=== PATIENT | female | born 1960 | race Caucasian/White ===

== ENCOUNTER 2021-06-21 08:18 | Inpatient (IN) | payer BC ==
[~2021-06-21] VITALS: Ht 162.6 cm; Wt 71.5 kg
--- NOTE | 2021-06-21 08:20 | NUR ---
PATIENT TO ROOM VIA WHEELCHAIR AND PHYSICIAN NOTIFIED OF PATIENT STATUS
[2021-06-21 09:12] LABS: HEMOGLOBIN 13.1 g/dl (12.0-16.0); IMMATURE GRANULOCYTES 4.8 % (0.0-5.0); MEAN CELL VOLUME 86.1 fL CALC (80.0-100.0); MEAN CORPUSCULAR HGB 28.9 pG CALC (26.0-32.0); MEAN CORPUSCULAR HGB CONC 33.6 g/dL CAL (32.0-36.0); NEUT# 9.74 thou/uL (2.00-7.15); RED BLOOD COUNT 4.53 mill/uL (4.20-5.60); RED CELL DISTRI WIDTH 13.1 % (11.5-15.5)
--- NOTE | 2021-06-21 09:24 | NUR ---
Reassessment of patient completed. No distress noted.
[2021-06-21 09:34] LABS: ALKALINE PHOSPHATASE 82 u/l (38-126); ANION GAP 15 (6-22 (CALC)); BILIRUBIN, TOTAL 0.8 mg/dL (0.0-1.4); BUN 11 mg/dL (7-17); BUN/CREATININE RATIO 18 (12-20 (CALC)); CARBON DIOXIDE 25 mmol/l (22-30); CHLORIDE 101 mmol/l (95-108); CREATININE 0.6 mg/dL (0.5-1.0); GFR > 60 ML/MIN (>=60 (CALC)); GFR FOR AFR.AMER. > 60 ML/MIN (>=60 (CALC)); POTASSIUM 3.2 mmol/l (3.5-5.1); SGOT/AST 63 u/l (14-36); SODIUM 137 mmol/l (137-146); TOTAL PROTEIN 7.7 g/dL (6.3-8.2)
--- NOTE | 2021-06-21 10:58 | NUR ---
ATTEMPT TO CALL REPORT TO FLOOR
[2021-06-21 11:15] VITALS: BP 128/68
--- NOTE | 2021-06-21 11:15 | NUR ---
PATIENT CAME FROM ER VIA WHEELCHAIR. CANINE SERVICE TEACHER IN ROOM TO OBTAIN VS. O2 AT 2L VIA NC AND O2 READING 85%. O2 INCREASE TO 4L VIA NC AND O2 READING 92%. PATIENT DENIES ANY OTHER NEEDS. TELE IN PLACE. CALL LIGHT IN REACH.
--- NOTE | 2021-06-21 13:34 | NUR ---
ASSESSMENT DONE. TELE IN PLACE. PATIENT IS ALERT AND ORIENT X3. PATIENT STATED THAT SHE GETS SOB WHEN SHE MOVES. PATIENT O2 AT 4L VIA NC AND O2 READING 88-89%. INCREASE O2 TO 5L VIA NC WITH HUMIDIFIE AND O2 READING 93%. TELE IN PLACE. PATIENT DENIES ANY NEEDS AT THIS TIME. SAFETY PRECAUTIONS REINFORCED AND CALL LIGHT IN REACH.
[2021-06-21 15:00] VITALS: BP 109/65
--- NOTE | 2021-06-21 16:30 | NUR ---
PATIENT IS RESTING IN BED. O2 AT 5L VIA NC AND READING 95%. EDUCATED PATIENT ABOUT PRONE POSITION. PO FLUIDS PROVIDED. PATIENT DENIES ANY NEEDS AT THIS TIME. CALL LIGHT IN REACH.
[2021-06-21 19:50] VITALS: BP 124/70
--- NOTE | 2021-06-21 19:50 | NUR ---
PATIENT ALERT AND ORIENTED. ABLE TO MAKE NEEDS KNOWN. ASSESSMENT COMPLETE. PATIENT REQUESTED TO USE BATHROOM. HELPED ASSIST PATIENT TO BEDSIDE COMMODE. SHORTNESS OF BREATH UPON EXERTION. CALL LIGHT AND BELONGINGS WITHIN REACH.
--- NOTE | 2021-06-21 22:25 | NUR ---
NO SIGNS OF SHORTNESS OF BREATH OR DISCOMFORT. PATIENT DENIES ANY PAIN RESPIRATIONS APPEAR EVEN AND UNLABORED. OXYGEN SATURATION IS AT 95% ON 8L HIGH FLOW PER RESPIRATORY THERAPY WHO CAME UP HERE EARLIER IN THIS SHIFT TO CHANGE PATIENT TO HIGH FLOW AND INCREASE HER OXYGEN. CALL LIGHT AND BELONGINGS REMAIN IN REACH.
[2021-06-22] VITALS: BP 101/58
--- NOTE | 2021-06-22 02:10 | NUR ---
PATIENT RESTING IN BED. NO SIGNS OF DISTRESS NOTED. RESPIRATIONS REMAIN EVEN/UNLABORED. DENIES NEEDING TO USE BEDSIDE COMMODE AT THIS TIME. ANSWERS ALL QUESTIONS APPROPRIATELY. O2 SAT AT 94% ON 7L HIGH FLOW.
--- NOTE | 2021-06-22 03:40 | NUR ---
PATIENT TRANSFERRED TO BEDSIDE COMMODE BY BIN CLEANER AFTER VS TAKEN. O2 SAT BEFORE WAS 94/95% ON 7L HIGH FLOW. AFTER TRANFERRING BACK TO BED, PATIENTS O2 SAT DROPPED TO 64%. HIGH FLOW O2 BUMPED UP TO 15L. PATIENT PLACED IN PRONDED POSITION. PATIENTS O2 SAT INCREASED TO 85-88%. RESPIRATORY THERAPY CALLED AND ON WAY.
--- NOTE | 2021-06-22 03:50 | NUR ---
RESPIRATORY IN WITH PATIENT. PLACED ON 15L HIGHFLOW WITH NON REBREATHER. O2 SAT UP TO 94%. PATIENT NO LONGER PRONING. PROVIDED WITH WARM BLANKET. CALL LIGHT AND BELONGINGS REMAIN IN REACH.
[2021-06-22 04:00] VITALS: BP 104/66
--- NOTE | 2021-06-22 04:50 | NUR ---
O2 RECHECKED READING AT 98-99%. RESPIRATIONS EVEN/UNLABORED.
--- NOTE | 2021-06-22 06:27 | NUR ---
NO SIGNS OF DISTRESS NOTED. RESPIRATIONS REMAIN EVEN/UNLABORED. HELPED PATIENT REPOSITION. RECHECKED OXYGEN SAT WHICH IS SUSTAINING AT 97% ON 100% O2.
--- NOTE | 2021-06-22 06:46 | NUR ---
PT IS ON 15l HFNC + NRB. SATS ARE 92% AT REST.
[2021-06-22 08:10] VITALS: BP 103/72
--- NOTE | 2021-06-22 08:19 | NUR ---
ASSESSMENT DONE. PATIENT IS ALERT AND ORIENT X3. TELE IN PLACE. LUNGS SOUND DIMINISHED. PATIENT HAS COUGH. PATIENT HAS 15L HFNC + NRB IN PLACE. O2 READING 99%. PATIENT STATED WHEN SHE MOVES SHE SOMETIMES FEELS SOB. PATIENT STATED SHE WANTS THE NRB MASK OFF TO TRY TO EAT BREAKFAST. REMOVED THE MASK. PATIENT O2 READING 94% WITH 15L HFNC. PATIENT DENIES SOB AT THIS TIME. PATIENT STATED SHE FEELS ANXIOUS ABOUT HER O2. TOLD PATIENT TO TAKE SLOW AND DEEP BREATHS. PATIENT VERBALIZED UNDERSTANDING. PATIENT STATED SHE HAS A HEADACHE. MEDICATED PATIENT WITH TYLENOL. PATIENT DENIES ANY OTHER NEEDS AT THIS TIME. SAFETY PRECAUTIONS REINFORCED AND CALL LIGHT IN REACH.
--- NOTE | 2021-06-22 09:00 | NUR ---
NOTIFIED ARIEL WHALEN ABOUT PATIENT O2 STATUS 15L HFNC. NO NEW ORDERS RECEIVED.
[2021-06-22 10:00] VITALS: BP 112/71
--- NOTE | 2021-06-22 12:16 | NUR ---
PATIENT IS RESTING IN BED ON HER RIGHT SIDE. PATIENT DENIES SOB AT THIS TIME. TELE IN PLACE. O2 READING 98% WITH 15L HFNC. PATIENT DENIES NEEDS AT THIS TIME. CALL LIGHT IN REACH.
[2021-06-22 14:52] VITALS: BP 132/89
--- NOTE | 2021-06-22 15:45 | NUR ---
PATIENT O2 READING 99% VIA HFNC 15L. ASSISTED PATIENT TO THE BSC AND PATIENT VOIDED. ASSISTED PATIENT BACK TO BED. PATIENT DENIES ANY OTHER NEEDS AT THIS TIME. CALL LIGHT IN REACH.
[2021-06-22 16:38] LABS: HEMATOCRIT 33.5 % (37.0-47.0); IMMATURE GRANULOCYTES 4.1 % (0.0-5.0); MEAN CELL VOLUME 87.9 fL CALC (80.0-100.0); MEAN CORPUSCULAR HGB 28.9 pG CALC (26.0-32.0); MEAN CORPUSCULAR HGB CONC 32.8 g/dL CAL (32.0-36.0); NEUT# 11.92 thou/uL (2.00-7.15); RED BLOOD COUNT 3.81 mill/uL (4.20-5.60); RED CELL DISTRI WIDTH 13.2 % (11.5-15.5)
--- NOTE | 2021-06-22 19:30 | NUR ---
ASSESSMENT COMPLETE AT THIS TIME. PATIENT ALERT AND ORIENTED. ABLE TO MAKE NEEDS KNOWN. NO SIGNS OF PAIN OR DISTRESS AT THIS TIME. RESPIRATIONS EVEN/UNLABORED. CALL LIGHT AND BELONGINGS REMAIN IN REACH. OXYGEN SATURATION SUSTAINING AT 97% ON 15L HIGH FLOW NC.
[2021-06-22 20:01] VITALS: BP 111/72
[2021-06-23 00:30] VITALS: BP 106/72
--- NOTE | 2021-06-23 00:30 | NUR ---
RESTING IN BED. NO COMPLAINTS VOICED AT THIS TIME. NO SIGNS OF DISTRESS. CALL LIGHT AND BELONGINGS REMAIN IN REACH.
--- NOTE | 2021-06-23 03:39 | NUR ---
NEW BAG OF FLUIDS HUNG. NO COMPLAINTS FROM PATIENT.
[2021-06-23 05:20] VITALS: BP 108/66
[2021-06-23 05:23] LABS: BASO% 0 % (0-3); EOS% 1 % (0-8); HEMATOCRIT 30.3 % (37.0-47.0); HEMOGLOBIN 10.2 g/dl (12.0-16.0); IMMATURE GRANULOCYTES 4.5 % (0.0-5.0); LYMPH% 8 % (15-41); MEAN CELL VOLUME 88.6 fL CALC (80.0-100.0); MEAN CORPUSCULAR HGB 29.8 pG CALC (26.0-32.0); MEAN CORPUSCULAR HGB CONC 33.7 g/dL CAL (32.0-36.0); MONO% 8 % (2-13); NEUT# 11.33 thou/uL (2.00-7.15); NEUT% 79 % (42-76); PLATELET COUNT 44 thou/uL (130-400); RED BLOOD COUNT 3.42 mill/uL (4.20-5.60); RED CELL DISTRI WIDTH 13.3 % (11.5-15.5)
[2021-06-23 05:55] LABS: ALKALINE PHOSPHATASE 74 u/l (38-126); ANION GAP 10 (6-22 (CALC)); BILIRUBIN, TOTAL 0.6 mg/dL (0.0-1.4); BUN 7 mg/dL (7-17); BUN/CREATININE RATIO 15 (12-20 (CALC)); CARBON DIOXIDE 25 mmol/l (22-30); CHLORIDE 105 mmol/l (95-108); CREATININE 0.5 mg/dL (0.5-1.0); GFR > 60 ML/MIN (>=60 (CALC)); GFR FOR AFR.AMER. > 60 ML/MIN (>=60 (CALC)); POTASSIUM 3.2 mmol/l (3.5-5.1); SGOT/AST 36 u/l (14-36); SODIUM 137 mmol/l (137-146)
[2021-06-23 06:07] LABS: ALBUMIN 2.7 g/dL (3.2-5.0); TOTAL PROTEIN 5.8 g/dL (6.3-8.2)
[2021-06-23 06:21] LABS: C-REACTIVE PROTEIN 40.4 mg/dL (0-0.9)
[2021-06-23 07:19] VITALS: BP 112/67
--- NOTE | 2021-06-23 07:19 | NUR ---
PATIENT IS SEMI-FOWELRS IN BED. ASSESSMENT DONE. PATIENT IS ALERT AND ORIENTED X3. PATIENT DENIES PAIN OR SOB AT THIS TIME. LUNGS SOUND DIMINISED/COARSE. O2 READING 94% VIA 15L HFNC. DECREASE O2 TO 13 HFNC AND PATIENT O2 READING 93%-94%. PATIENT DENIES NEEDS AT THIS TIME. CALL LIGHT IN REACH.
--- NOTE | 2021-06-23 11:28 | NUR ---
NOTIFIED ARIEL BRASHER THAT PATIENT HAS TEMP 100.3 AND P-120. PATIENT STATED SHE HAS A HEADACHE. MEDICATED PATIENT WITH TYLENOL. O2 READING 100% VIA 13L HFNC. MADE ROOM COOL. PROVIDED PO FLUIDS AND ICE CHIPS. TELE IN PLACE. PATIENT DENIES ANY OTHER NEEDS AT THIS TIME. CALL LIGHT IN REACH.
[2021-06-23 11:29] VITALS: BP 134/76
[2021-06-23 14:15] VITALS: BP 105/65
--- NOTE | 2021-06-23 15:04 | NUR ---
O2 READING 97% VIA 13L HFNC. ASSISTED PATIENT TO THE BSC PATIENT VOID AND HAD SMALL BM. THEN BACK TO BED. MEDICATED PATIENT WITH ROBITUSSIN FOR HER COUGH. TELE IN PLACE. PATIENT DENIES ANY OTHER NEEDS AT THIS TIME. CALL LIGHT IN REACH.
[2021-06-23 19:00] VITALS: BP 105/65
--- NOTE | 2021-06-23 20:00 | NUR ---
PHYSICAL ASSESMENT COMPLETE. PT CURRENTLY DENIES PAIN OR DISCOMFORT. SCHEDULED MEDICATIONS AND PRN MEDICATION ADMINISTERED, SEE E-MAR. PT DENIES ANY NEEDS AT THIS TIME. PLAN OF CARE REVIEWED, PT DENIES QUESTIONS, VERBALIZES UNDERSTANDING. ITEMS WITHIN REACH, BED LOCKED IN LOW POSITION W/ BEDRAILS UP X2. CALL WILSON WITHIN REACH, AGREES TO CALL PRN.
[2021-06-24] VITALS (8 sets, daily range): BP systolic 98–118; BP diastolic 51–76
--- NOTE | 2021-06-24 | NUR ---
PT LAYING IN BED WITH EYES CLOSED, APPEARS TO BE SLEEPING, APPEARS COMFORTABLE AND IN NO DISTRESS. RESPIRATIONS REGULAR AND UNLABORED. ITEMS REMAIN WITHIN REACH, CALL WILSON REMAINS WITHIN REACH. BED REMAINS LOCKED AND IN LOW POSITION WITH BEDRAILS UP X2. WILL CONTINUE TO MONITOR.
--- NOTE | 2021-06-24 04:17 | NUR ---
PT RESTING IN BED, NO SIGNS OF DISTRESS NOTED, RESP EVEN AND UNLABORED. PT PROVIDED ROBITUSSIN COUGH MEDICINE FOR C/O COUGH. CALL LIGHT IN REACH, CONTINUE TO MONITOR.
[2021-06-24 05:59] LABS: HEMATOCRIT 32.1 % (37.0-47.0); HEMOGLOBIN 10.6 g/dl (12.0-16.0); IMMATURE GRANULOCYTES 4.9 % (0.0-5.0); MEAN CELL VOLUME 89.2 fL CALC (80.0-100.0); MEAN CORPUSCULAR HGB 29.4 pG CALC (26.0-32.0); NEUT# 8.04 thou/uL (2.00-7.15); RED BLOOD COUNT 3.6 mill/uL (4.20-5.60); RED CELL DISTRI WIDTH 13.1 % (11.5-15.5)
[2021-06-24 06:15] LABS: ALBUMIN 2.8 g/dL (3.2-5.0); ALKALINE PHOSPHATASE 98 u/l (38-126); BILIRUBIN, TOTAL 0.4 mg/dL (0.0-1.4); BUN 10 mg/dL (7-17); BUN/CREATININE RATIO 19 (12-20 (CALC)); CARBON DIOXIDE 24 mmol/l (22-30); CHLORIDE 106 mmol/l (95-108); CREATININE 0.5 mg/dL (0.5-1.0); GFR > 60 ML/MIN (>=60 (CALC)); GFR FOR AFR.AMER. > 60 ML/MIN (>=60 (CALC)); SODIUM 139 mmol/l (137-146)
[2021-06-24 06:22] LABS: ANION GAP 13 (6-22 (CALC)); POTASSIUM 4.1 mmol/l (3.5-5.1); SGOT/AST 66 u/l (14-36)
--- NOTE | 2021-06-24 06:45 | NUR ---
BEDSIDE REPORT RECEIVED. PT IN BED ASLEEP WILL MONITOR
--- NOTE | 2021-06-24 09:15 | NUR ---
PT AWAKE SITTING UP IN BED. ASSESSMENT PERFORMED. NO COMPLAINTS WILL CONTINUE TO MONITOR.
--- NOTE | 2021-06-24 17:20 | NUR ---
PT MEDICATIED FOR CT. ESCORTED VIA WC BY EVELYN MCCAIN.
[2021-06-24 17:48] LABS: URINE BILIRUBIN - DIPSTICK NEGATIVE (NEGATIVE); URINE BLOOD DIPSTICK TRACE-INTACT (NEGATIVE); URINE COLOR YELLOW; URINE GLUCOSE - DIPSTICK NEGATIVE (NEGATIVE); URINE KETONE NEGATIVE (NEGATIVE); URINE LEUK ESTERASE NEGATIVE (NEGATIVE); URINE PH 6.5 (4.5-8.0); URINE PROTEIN - DIPSTICK TRACE mg/dL (NEG-TRACE); URINE SPECIFIC GRAVITY 1.025; URINE UROBILINOGEN - DIPSTICK 0.2 E.U./dL (0.2)
[2021-06-24 17:50] LABS: URINE NITRITE - DIPSTICK NEGATIVE (Negative)
--- NOTE | 2021-06-24 18:00 | NUR ---
PT RETURNED TO FLOOR WITH EVELYN HUMAN RESOURCES TECHNICIAN IN WC
[2021-06-25] VITALS: BP 117/75
[2021-06-25 04:00] VITALS: BP 125/83
--- NOTE | 2021-06-25 04:00 | NUR ---
PT RESTING IN BED, NO SIGNS OF DISTRESS NOTED, RESP EVEN AND UNLABORED. PT VOICES NO NEEDS OR COMPLAINTS AT THIS TIME. CALL LIGHT IN REACH, CONTINUE TO MONITOR.
[2021-06-25 05:56] LABS: HEMATOCRIT 32.6 % (37.0-47.0); HEMOGLOBIN 10.7 g/dl (12.0-16.0); IMMATURE GRANULOCYTES 4.2 % (0.0-5.0); MEAN CELL VOLUME 87.9 fL CALC (80.0-100.0); MEAN CORPUSCULAR HGB 28.8 pG CALC (26.0-32.0); MEAN CORPUSCULAR HGB CONC 32.8 g/dL CAL (32.0-36.0); NEUT# 9.89 thou/uL (2.00-7.15); RED BLOOD COUNT 3.71 mill/uL (4.20-5.60)
[2021-06-25 06:32] LABS: ALBUMIN 2.8 g/dL (3.2-5.0); ALKALINE PHOSPHATASE 85 u/l (38-126); ANION GAP 14 (6-22 (CALC)); BILIRUBIN, TOTAL 0.3 mg/dL (0.0-1.4); BUN 10 mg/dL (7-17); BUN/CREATININE RATIO 22 (12-20 (CALC)); CARBON DIOXIDE 24 mmol/l (22-30); CHLORIDE 105 mmol/l (95-108); CREATININE 0.5 mg/dL (0.5-1.0); GFR > 60 ML/MIN (>=60 (CALC)); GFR FOR AFR.AMER. > 60 ML/MIN (>=60 (CALC)); POTASSIUM 4.2 mmol/l (3.5-5.1); SGOT/AST 58 u/l (14-36); SODIUM 138 mmol/l (137-146)
--- NOTE | 2021-06-25 06:50 | NUR ---
REPORT REC FROM Monica GIL RN
[2021-06-25 07:01] LABS: C-REACTIVE PROTEIN 17.9 mg/dL (0-0.9)
[2021-06-25 07:39] VITALS: BP 121/62
--- NOTE | 2021-06-25 07:39 | NUR ---
PT SITTING IN BED. A&O X4. O2 VIA NC @3L IN PLACE, PT SUSTAINING 97%. PT ENCOURAGED TO GET OOB INTO THE CHAIR TODAY, PT AGREEABLE TO PLAN AFTER BREAKFAST. CLEAR/DIMINISHED BREATH SOUNDS UPON AUSCULTATION. HORSE TRAINER COUGH NOTED, PT REPORTS OCCASIONAL SPUTUM PRODUCTION. PIPE COVERER HELPER IN PLACE, CURRENTLY SR WITH A RATE OF 96 BPM. #18G RAC HEALTHY AND PATENT, #20G LAC INFUSING PER EMAR, ALSO HEALTHY AND PATENT. ACTIVE BOWEL SOUNDS X4 QUADRANTS. ASSESSMENT COMPLETED. DISCUSSED POC. CALL LIGHT WITHIN REACH.
--- NOTE | 2021-06-25 09:15 | NUR ---
DR POSADAS AND Figueroa RAMIREZ APRN AT BEDSIDE DISCUSSING POC. O2 TITRATED DOWN TO 4L, O2 SUSTAINING 96%.
[2021-06-25 10:30] VITALS: BP 111/68
--- NOTE | 2021-06-25 11:24 | NUR ---
PT SITTING IN CHAIR. NO DISTRESS NOTED. CALL LIGHT WITHIN REACH. O2 REMAINS AT 4L.
[2021-06-25 14:35] VITALS: BP 106/65
--- NOTE | 2021-06-25 15:35 | NUR ---
RECIEVED REPORT FROM ANGEL RN. PT SITTING UP IN RECYLINER. PT IS A/O X3. RESPIRATIONS ARE EVEN AND UNLABORED ON 4L NC HIGH FLOW NC. TELE MONITORING IN PLACE. #20G LAC INFUSING WITH IVF PER ORDER, SITE REMAINS HEALTHY AND PATENT. PT COMPLAINS OF IT BEING SORE, OFFERED TO STARTED NEW. PT REFUSED. PT DENIES OF ANY PAINS OR DISCOMFORTS AT THIS TIME. ALL SAFETY PRECAUTIONS AE IN PLACE WITH CALL LIGHT IN REACH. WILL CONTINUE TO MONITOR
[2021-06-25 19:00] VITALS: BP 120/72
--- NOTE | 2021-06-25 20:00 | NUR ---
PT IN BED RESTING QUIETLY. COUGH CONTINUES, PT REPORTS SOME PRODUCTION WITH COUGH BUT INDICATES SHE HAS NOT PRODUCED ENOUGH SPUTUM TO PROVIDE SAMPL OF YET. PT CONTINUES TO HAVE AN IV SITE TO LAC RUNNING 20ML/HR. PT DENIES ANY DISCOMFORT AT THE SITE. PT REMAINS ON 4L OF HIGH FLOW O2 VIA NC. SAFETY PRECAUTIONS IN PLACE. WILL MONITOR
[2021-06-26] VITALS: BP 124/79
--- NOTE | 2021-06-26 | NUR ---
PT RESTING QUIETLY, NO COMPLAINTS VOICED. NO S/S OF DISTRESS NOTED. BREATHING EVEN AND UNLABORED. SAFETY PRECAUTIONS REMAIN IN PLACE, WILL MONITOR
[2021-06-26 04:00] VITALS: BP 109/69
--- NOTE | 2021-06-26 04:15 | NUR ---
PT RESTING COMFORTABLY. SPUTUM OBTAINED FOR TESTING. TO BE PICKED UP FROM THE LAB. NO COMPLAINTS VOICED AT THIS TIME. BREATHING EVEN AND UNLABORED. NO S/S OF DISTRESS NOTED. SAFETY PRECAUTIONS REMAIN IN PLACE. WILL MONITOR
[2021-06-26 05:38] LABS: HEMATOCRIT 31.7 % (37.0-47.0); HEMOGLOBIN 10.3 g/dl (12.0-16.0); IMMATURE GRANULOCYTES 3.6 % (0.0-5.0); MEAN CELL VOLUME 88.3 fL CALC (80.0-100.0); MEAN CORPUSCULAR HGB 28.7 pG CALC (26.0-32.0); MEAN CORPUSCULAR HGB CONC 32.5 g/dL CAL (32.0-36.0); NEUT# 11.19 thou/uL (2.00-7.15); RED BLOOD COUNT 3.59 mill/uL (4.20-5.60); RED CELL DISTRI WIDTH 13.1 % (11.5-15.5)
[2021-06-26 06:06] LABS: ALBUMIN 2.8 g/dL (3.2-5.0); ALKALINE PHOSPHATASE 72 u/l (38-126); ANION GAP 10 (6-22 (CALC)); BILIRUBIN, TOTAL 0.2 mg/dL (0.0-1.4); BUN 12 mg/dL (7-17); BUN/CREATININE RATIO 25 (12-20 (CALC)); C-REACTIVE PROTEIN 5.3 mg/dL (0-0.9); CARBON DIOXIDE 25 mmol/l (22-30); CHLORIDE 105 mmol/l (95-108); CREATININE 0.5 mg/dL (0.5-1.0); GFR > 60 ML/MIN (>=60 (CALC)); GFR FOR AFR.AMER. > 60 ML/MIN (>=60 (CALC)); SGOT/AST 50 u/l (14-36); SODIUM 136 mmol/l (137-146); TOTAL PROTEIN 5.8 g/dL (6.3-8.2)
--- NOTE | 2021-06-26 06:40 | NUR ---
REPORT REC FROM Jose Luis AGUILAR LPN
--- NOTE | 2021-06-26 08:13 | NUR ---
pt sitting in bed. a&o x4. no distress noted. continueson o2 via nc @4l in place sustaining 90-92%. FURNACE BRAZER cough noted. clear/diminished breath sounds upon auscultation. telemetry monitoring in place. active bowel sounds x4 quadrants, reports bm yesterday. no other needs at this time. pt updated on poc. #20g rac healthy and patent with ivf infusing per mar orders. assessment completed. discussed poc. call light within reach.
[2021-06-26 08:15] VITALS: BP 115/75
[2021-06-26 10:26] VITALS: BP 105/59
--- NOTE | 2021-06-26 10:39 | NUR ---
NEW IV INITIATED BY THIS HACKSAW INSPECTOR X1 ATTEMPT. #22G LW , HEALTHY AND PATENT WITH GOOD BLOOD RETURN. #20G LAC REMOVED; PER PT REQUEST.
--- NOTE | 2021-06-26 10:49 | NUR ---
DR POSADAS AND Figueroa RAMIREZ APRN AT BEDSIDE DISCUSSING POC
--- NOTE | 2021-06-26 11:15 | NUR ---
DR POSADAS AND Figueroa RAMIREZ APRN AT BEDSIDE DISCUSSING POC
--- NOTE | 2021-06-26 12:28 | NUR ---
pt sitting in bed. no other needs at this time. call light within reach.
[2021-06-26] MEDS ORDERED: DEXAMETHASON6 MG PO (13:26)
[2021-06-26] MEDS ORDERED: ZITHROMAX250 MG PO (13:26)
[2021-06-26] MEDS ORDERED: ASPIRIN REGULA325 M1 PO (13:27)
[2021-06-26] MEDS ORDERED: ALBUTEROL108 MCG/AC IN (13:28)
[2021-06-26] MEDS ORDERED: OXY1 (13:29)
[2021-06-26 15:00] VITALS: BP 118/76
--- NOTE | 2021-06-26 16:05 | NUR ---
Patient underwent PT intervention today. Patient did seated B LE AROM exercises today: hip flexion, hip adduction, hip abduction, hamstring curls, knee extension, gluteal squeezes, and ankle pumps for 2 x 10 reps with verbal and tactile cuing. Patient did log rolling bed mobility and sit to stand push off transfers with 1-2 reps with occasional verbal and tactile cuing to decrease trick movements and fall risks.
--- NOTE | 2021-06-26 16:15 | NUR ---
D/C INSTRUCTIONS GIVEN TO PT, IV INTACT UPON REMOVAL.
--- NOTE | 2021-06-26 16:31 | NUR ---
Discharge instructions given. Patient verbalizes understanding of same. Discharged in stable condition via wheelchair to home with home oxygen set at 4L. Pt educated on how to properly use O2 at home, pt encouraged to buy pulse ox to monitor o2 and keep above 90%, pt encouraged to return if new or worsening symptoms. Pt educated on importance of continuing home medications and being compliant with new medications especially ASA. Pt accompanied with staff. All belongings sent with pt.
== END 2021-06-26 14:32 | DRG 871 ==
LOC: ED 08:18 → ED-I 08:53 → ED 10:05 → MS2 10:06
PROVIDERS: Family Medicine; Nurse Practitioner; Nurse Practitioner Family; ADMIT Internal Medicine; ATTEND Internal Medicine
DX: A41.9 Sepsis, unspecified organism (principal); J18.9 Pneumonia, unspecified organism; J96.01 Acute respiratory failure with hypoxia; R65.20 Severe sepsis without septic shock; D69.6 Thrombocytopenia, unspecified; E78.5 Hyperlipidemia, unspecified; B94.8 Sequelae of other specified infectious and parasitic diseases; Z91.041 Radiographic dye allergy status
CPT/HCPCS: Q9967

== ENCOUNTER 2024-11-22 13:47 | Emergency (ER) | payer OTHER ==
[~2024-11-22] VITALS: Ht 162.6 cm; Wt 74.8 kg
[~2024-11-22 13:47] MED LIST: ALBUTEROL108 MCG/AC IN; ASPIRIN REGULA325 M1 PO; DEXAMETHASON6 MG PO; OXY1; ZITHROMAX250 MG PO
[2024-11-22 13:59] VITALS: BP 122/80
[2024-11-22] MEDS ORDERED: KETOROLAC TROMETHAMINE 30 MG/ML SDV IV ONE (14:00)
[2024-11-22] MEDS ORDERED: MORPHINE SULFATE 4 MG/ML VIAL IV ONE (14:00)
[2024-11-22] MEDS ORDERED: ONDANSETRON HCl 4 MG/2 ML SDV IV ONE (14:00)
[2024-11-22] MEDS ORDERED: MIDAZOLAM HCL 2 MG/2 ML VIAL IV ONE (15:10)
[2024-11-22 16:22] VITALS: BP 131/77
[2024-11-22 16:29] VITALS: BP 131/77
[2024-11-22] MEDS ORDERED: TRAMADOL HYDROC50 M1 PO (16:35)
== END 2024-11-22 16:59 | disposition home or self-care (01) | DRG 563 ==
LOC: ED 13:47
PROC: 2W3CX1Z Immobilization of Right Lower Arm using Splint (ICD-10-PCS; principal; 2024-11-22)
DX: S52.501A Unspecified fracture of the lower end of right radius, initial encounter for closed fracture (principal); S52.611A Displaced fracture of right ulna styloid process, initial encounter for closed fracture; W01.0XXA Fall on same level from slipping, tripping and stumbling without subsequent striking against object, initial encounter
CPT/HCPCS: J2405